=== PATIENT | female | born 1950 | race Caucasian/White ===

== ENCOUNTER 2023-08-25 19:02 | Inpatient (IN) ==
--- NOTE | 2023-08-25 21:11 | DR.GENAD ---
HPI Time Seen Time Seen by Provider: 08/25/23 21:10 PCP Primary Care Physician: Dr. Garcia Complaint/Symptoms Chief Complaint Doctors Comments: Patient states that she was diagnosed with Pneumonia LLL on 08/23/2023. Patient received Rocephin 1 gram IM and was given levaquin 750mg po. Patient returns to the ED today because she has generalized bodyaches and feels worse today. Patient is having chest pain and back pain from coughing.Patient denies: fever,n,v,headache,dizziness. Chief Complaint:: Patient diagnosed with pneumonia on 08/23/23 and was told to come back if worse. Patient states she is having intermittent pain in her back and chest from coughing. Self Treatment fo Chief Complaint: antibiotics, steriods, tylenol and ibuprofen COVID-19 Coronavirus risk:travel/contact w/high risk person: No Has patient experienced Coronavirus symptoms: Yes Coronavirus symptoms experienced: Fever, Coughing and Shortness of Breath Source History Provided: Patient Mode of Arrival Mode of Arrival: Ambulatory Timing Onset of Chief Complaint: 08/16/23 PMH PMH Past Medical History: Yes Past Medical History: Dyslipidemia and Hypertension Past Surgical History: Yes Surgical History: Hysterectomy Past Surgical History Comment: 2 foot, lumpectomy, partial nephrectomy Family History History of Family Medical Conditions: Yes Family Medical History: Diabetes Mellitus, Cancer and Hypertension Social History Alcohol Use: None Do you use any recreational Drugs:: No Lives With: Spouse Lives Where: Home Travel Risk Coronavirus risk:travel/contact w/high risk person: No Has patient experienced Coronavirus symptoms: Yes Coronavirus symptoms experienced: Fever, Coughing and Shortness of Breath Infectious screening In the last 2 months have you had wt loss of >10#?: NO Have you had fever, night sweats or hemotysis?: No Have you traveled outside the country in the last 6 months?: No Isolation: Standard ROS Review of Systems Constitutional: No Symptoms Reported Eyes: No Symptoms Reported ENTM: No Symptoms Reported Respiratoy: Dry Cough Cardiovascular: Chest Pain (pleuritic chest pain) Gastrointestinal/Abdominal: No Symptoms Reported Genitourinary: No Symptoms Reported Neurological: No Symptoms Reported Musculoskeletal: Back Pain (When patient coughs) Integumentary: No Symptoms Reported Hematologic/Lymphatic: No Symptoms Reported Endocrine: No Symptoms Reported Psychiatric: No Symptoms Reported All Other Systems: Reviewed and Negative PE Vital Signs Vitals: Vital Signs Temperature 98.4 F Temperature 98.8 F Temperature 99.5 F Temperature 99.6 F Pulse Rate [Radial] 99 Pulse Rate 109 Pulse Rate 124 Pulse Rate 112 Respiratory Rate 20 Respiratory Rate 18 Respiratory Rate 19 Respiratory Rate 19 Blood Pressure [Left Arm] 144/82 Blood Pressure 136/83 Blood Pressure 164/103 Blood Pressure 136/86 O2 Sat by Pulse Oximetry 98 O2 Sat by Pulse Oximetry 94 O2 Sat by Pulse Oximetry 95 O2 Sat by Pulse Oximetry 96 General Limitations: No Limitations General Appearance: Alert and In No Apparent Distress Head Head Exam: Normal Inspection Eyes Eye exam: Normal Appearance ENT ENT Exam: Normal Exam External Ear Exam: Normal External Inspection TM/Canal Exam: Bilateral: Normal Nose Exam: Normal Nose Exam Mouth Exam: Normal Inspection Throat Exam: Normal Inspection Neck Neck Exam: Normal Inspection Chest Chest Inspection: Normal Inspection Respiratory Respiratory Exam: Normal Lung Sounds Bilat Respiratory Exam: Bilateral: Clear to Auscultation Cardiovascular Cardiovascular Exam: Regular Rate and Normal Rhythm Abdominal Exam Abdominal Exam: Normal Inspection, Normal Bowel Sounds and Soft Extremities Extremities Exam: Normal Inspection Back Back Exam: Normal Inspection Neurologic Neurological Exam: Alert and Oriented X3 Psychiatric Psychiatric Exam: Normal Affect and Normal Mood Skin Skin Exam: Warm, Dry, Intact and Normal Color MDM Differential Diagnosis Differential Diagnosis: Electrolyte Disorder, Pneumonia,Failure of Outpatient therapy COURSE Treatment Treatment: Patient's ABG revealed a P02 59. Discussed Patient with Dr Heller and he accepted patient to his service for further evaluation.Patient received Rocephin 1 g iv and azithromycin 500mg iv in the ED. ROR Labs Reviewed Laboratory Results Reviewed?: Yes 08/25/23 21:25 08/25/23 21:25 Laboratory: WBC 10.1 X10^3/uL (3.6-10.0) H 08/25/23 21:25 RBC 4.23 X10^6/uL (3.5-5.4) 08/25/23 21:25 Hgb 12.1 g/dL (12.0-16.0) 08/25/23 21:25 Hct 36.5 % (36.0-47.0) 08/25/23 21:25 MCV 86.2 fL (80.0-100.0) 08/25/23 21:25 MCH 28.7 pg (27.0-34.0) 08/25/23 21:25 MCHC 33.3 g/dL (33.0-35.0) 08/25/23 21: RDW 14.1 % (11.6-16.5) 08/25/23: Plt Count 279 X10^3/uL (150.0-450.0) 08/25/23 21: MPV 8.1 fL (7.4-11.0) 08/25/23 21: Neut % (Auto) 76.6 % (42.0-75.0) H 08/25/23 21: Lymph % (Auto) 13.1 % (21.0-51.0) L 08/25/23: [place] % (Auto) 8.0 % (0.0-13.0) 08/25/23: Eos % (Auto) 1.5 % (0.9-2.9) 08/25/23: Baso % (Auto) 0.8 % (0.2-1.0) 08/25/23: Neut # (Auto) 7.7 x10^3/uL (2.2-4.8) H 08/25/23 21: Lymph # (Auto) 1.3 X10^3/uL (1.3-2.9) 08/25/23 21: [place] # (Auto) 0.8 x10^3/uL (0.3-0.8) 08/25/23 21: Eos # (Auto) 0.2 x10^3/uL (0.0-0.2) 08/25/23: Baso # (Auto) 0.1 X10^3/uL (0.0-0.1) 08/25/23 21: Absolute Nucleated RBC 0.0 /100WBC 08/25/23: Sample Site Rr 08/25/23 22: ABG pH 7.510 (7.35-7.45) H 08/25/23 22: ABG pCO2 36.0 mmHg (35.0-45.0) 08/25/23 22: ABG pO2 59.0 mmHg (80.0-100.0) L 08/25/23 22: ABG HCO3 28.7 mmol/L (22-26) H 08/25/23 22:22 ABG O2 Saturation 93.0 % (90-100) 08/25/23 22:22 ABG Base Excess 5.5 mmol/L (-2.0-2.0) H 08/25/23 22:22 Christo Test Pos 08/25/23 22:22 A-a Gradient 46.0 mmHg 08/25/23 22:22 FiO2 21.0 08/25/23 22:22 Blood Gas Comments Kemi well ae 08/25/23 22:22 Sodium 137 mmol/L (136-145) 08/25/23 21:25 Corrected Sodium TNP 08/25/23 21:25 Potassium 4.3 mmol/L (3.5-5.1) 08/25/23 21: Chloride 100 mmol/L (98-107) 08/25/23 21:25 Carbon Dioxide 28.9 mmol/L (21-32) 08/25/23 21: BUN 22 mg/dL (7-18) H 08/25/23 21:25 Creatinine 1.21 mg/dL (0.55-1.02) H 08/25/23 21:25 Est GFR (MDRD) Af Amer 56 (>60) L 08/25/23 21:25 Est GFR (MDRD) Non-Af 46 (>60) L 08/25/23 21:25 Glucose 98 mg/dL (65-99) 08/25/23 21: Calcium 8.7 mg/dL (8.5-10.1) 08/25/23 21:25 Corrected Calcium TNP 08/25/23 21:25 Total Bilirubin 0.40 mg/dL (0.2-1.0) 08/25/23 21:25 AST 14 Units/L (15-37) L 08/25/23 21:25 ALT 24 Units/L (12-78) 08/25/23 21:25 Alkaline Phosphatase 90 Units/L (46-116) 08/25/23 21:25 Total Protein 7.1 g/dL (6.4-8.2) 08/25/23 21:25 Albumin 3.4 g/dL (3.4-5.0) 08/25/23 21:25 Globulin 3.7 g/dL (2.5-4.5) 08/25/23 21:25 Albumin/Globulin Ratio 0.9 Ratio (1.1-2.1) L 08/25/23 21:25 Opioid Opioid Risk Tool Age (Rudy box if 16-45): No History of Preadolescent Sexual Abuse: No Total: 0 Total Score Risk Category: Low Risk Copyright: [facility] predicting aberrant behaviors Discharge Plan Diagnosis Discharge Problem: Pneumonia Discharge Plan Patient Disposition: 09 ADMITTED INPATIENT Condition: Stable Prescriptions: No Action meloxicam 15 mg tablet 15 mg PO QDAY losartan-hydrochlorothiazide 50-12.5 mg tablet 1 tab PO QDAY sertraline 50 mg tablet 50 mg PO BID rosuvastatin 10 mg tablet 10 mg PO QPM promethazine-DM 6.25-15 mg/5 mL syrup 5 ml PO Q6H PRN azithromycin 250 mg tablet 250 mg PO DAILY dexamethasone 4 mg tablet 4 mg PO QDAY albuterol sulfate 90 mcg/actuation HFA aerosol inhaler 1 puff INHALATION Q4H PRN levofloxacin 750 mg tablet 750 mg PO Q24H 10 Days Qty: 10 0RF Health Concerns: Post Hospitalization: new medications and changes needed to prevent readmission or further decline. Pt educated and given instructions on all concerns. Plan of Treatment: Continue with present treatment and follow up plan. Pt is to keep follow up appointment as instructed and take medications as ordered. Orders to Discharge Patient Discharge Orders: Transfer (Routine); Ordered 08/26/23 Ordered By: Angela Arshad Follow ups/Referrals Follow ups/Referrals: Blaine Garcia [Primary Care Provider] - 3 days Instructions Stand Alone Forms: Post Hospital Follow Up Care
[2023-08-25 21:44] LABS: BASOPHILS # (AUTO) 0.1 X10^3/uL (0.0-0.1); BASOPHILS % (AUTO) 0.8 % (0.2-1.0); EOSINOPHILS # (AUTO) 0.2 x10^3/uL (0.0-0.2); EOSINOPHILS % (AUTO) 1.5 % (0.9-2.9); HEMATOCRIT 36.5 % (36.0-47.0); HEMOGLOBIN 12.1 g/dL (12.0-16.0); LYMPHOCYTES # (AUTO) 1.3 X10^3/uL (1.3-2.9); LYMPHOCYTES % (AUTO) 13.1 % (21.0-51.0); MEAN CORPUSCULAR HEMOGLOBIN 28.7 pg (27.0-34.0); MEAN CORPUSCULAR HGB CONC 33.3 g/dL (33.0-35.0); MEAN CORPUSCULAR VOLUME 86.2 fL (80.0-100.0); MEAN PLATELET VOLUME 8.1 fL (7.4-11.0); MONOCYTES # (AUTO) 0.8 x10^3/uL (0.3-0.8); NEUTROPHILS # (AUTO) 7.7 x10^3/uL (2.2-4.8); NEUTROPHILS % (AUTO) 76.6 % (42.0-75.0); PLATELET COUNT 279 X10^3/uL (150.0-450.0); RED BLOOD COUNT 4.23 X10^6/uL (3.5-5.4); RED CELL DISTRIBUTION WIDTH 14.1 % (11.6-16.5); WHITE BLOOD COUNT 10.1 X10^3/uL (3.6-10.0)
[2023-08-25 21:53] LABS: ALANINE AMINOTRANSFERASE 24 Units/L (12-78); ALBUMIN 3.4 g/dL (3.4-5.0); ALKALINE PHOSPHATASE 90 Units/L (46-116); ASPARTATE AMINO TRANSFERASE 14 Units/L (15-37); BLOOD UREA NITROGEN 22 mg/dL (7-18); CALCIUM 8.7 mg/dL (8.5-10.1); CARBON DIOXIDE 28.9 mmol/L (21-32); CHLORIDE 100 mmol/L (98-107); CREATININE 1.21 mg/dL (0.55-1.02); GLUCOSE 98 mg/dL (65-99); POTASSIUM 4.3 mmol/L (3.5-5.1); SODIUM 137 mmol/L (136-145); TOTAL PROTEIN 7.1 g/dL (6.4-8.2); eGFR NON BLACK RACES 46 (>60)
[2023-08-25 22:27] LABS: ABG ALLEN TEST POS; ABG BASE EXCESS 5.5 mmol/L (-2.0-2.0); ABG HCO3 28.7 mmol/L (22-26)
[2023-08-25] MEDS ORDERED: ROCEPHIN VIAL 2 GRAMS 2 G in NS 100 ML IV 100 ML IV SCH (23:39)
[2023-08-25] MEDS ORDERED: NS 100 ML IV 100 ML ONE (23:47)
[2023-08-25] MEDS ORDERED: ROCEPHIN VIAL 1 GRAM ONE (23:47)
[2023-08-26] MEDS ORDERED: VENTOLIN or PROAIR HFA IN PRN (01:17)
[2023-08-26 02:00] VITALS: BMI 24.0
[2023-08-26] MEDS: ZOFRAN INJ 4 MG VIAL IVP PRN (03:58)
[2023-08-26 04:49] LABS: BASOPHILS % (AUTO) 0.5 % (0.2-1.0); EOSINOPHILS # (AUTO) 0.1 x10^3/uL (0.0-0.2); EOSINOPHILS % (AUTO) 1.6 % (0.9-2.9); HEMATOCRIT 33.3 % (36.0-47.0); HEMOGLOBIN 11.5 g/dL (12.0-16.0); LYMPHOCYTES # (AUTO) 1.2 X10^3/uL (1.3-2.9); LYMPHOCYTES % (AUTO) 12.5 % (21.0-51.0); MEAN CORPUSCULAR HEMOGLOBIN 30.7 pg (27.0-34.0); MEAN CORPUSCULAR HGB CONC 34.5 g/dL (33.0-35.0); MEAN CORPUSCULAR VOLUME 89.1 fL (80.0-100.0); MEAN PLATELET VOLUME 8.6 fL (7.4-11.0); MONOCYTES # (AUTO) 0.8 x10^3/uL (0.3-0.8); NEUTROPHILS # (AUTO) 7.2 x10^3/uL (2.2-4.8); NEUTROPHILS % (AUTO) 76.4 % (42.0-75.0); PLATELET COUNT 285 X10^3/uL (150.0-450.0); RED BLOOD COUNT 3.73 X10^6/uL (3.5-5.4); RED CELL DISTRIBUTION WIDTH 14.1 % (11.6-16.5); WHITE BLOOD COUNT 9.5 X10^3/uL (3.6-10.0)
[2023-08-26 05:04] LABS: ALANINE AMINOTRANSFERASE 22 Units/L (12-78); ALKALINE PHOSPHATASE 78 Units/L (46-116); ASPARTATE AMINO TRANSFERASE 14 Units/L (15-37); BLOOD UREA NITROGEN 24 mg/dL (7-18); CALCIUM 8.5 mg/dL (8.5-10.1); CARBON DIOXIDE 26.7 mmol/L (21-32); CHLORIDE 102 mmol/L (98-107); COR CA(FOR HYPOALB) 9.3 mg/dL (8.5-10.1); CREATININE 1.15 mg/dL (0.55-1.02); GLUCOSE 107 mg/dL (65-99); POTASSIUM 4.1 mmol/L (3.5-5.1); SODIUM 138 mmol/L (136-145); TOTAL PROTEIN 6.6 g/dL (6.4-8.2); eGFR NON BLACK RACES 49 (>60)
--- NOTE | 2023-08-26 08:55 | DR.H&P ---
H&P History & Physical for Day of: H&P Date: 08/26/23 Chief Complaint Chief Complaint: Left lower lobe pneumonia Allergies Allergies Allergy/AdvReac Type Severity Reaction Status Date / Time No Known Drug Allergies Allergy Verified 08/25/23 20:13 History of Present Illness History of Present Illness: This is a pleasant 73-year-old white female who was diagnosed with left lower lobe pneumonia on 08/23/2023. She was treated with p.o. Levaquin as outpatient but has not gotten any better. She is having a lot of shortness of breath and coughing at this time. She reports that she is having a lot of pain in her back and chest from the coughing. This morning she tells me that she is having black tarry stool since last night. She does have a history of taking ibuprofen and has been on antibiotics and steroids recently as well. She has some mild epigastric pain she reports. I told her to not eat anything and we will start her on IV Protonix and consult Dr. Gautam for EGD later today. Meantime we will continue her on IV Levaquin for her pneumonia. Past Medical History Past Medical History: Dyslipidemia and Hypertension Past Surgical History Surgical History: Hysterectomy and Mastectomy Family History Family Medical History: Diabetes Mellitus, Cancer and Hypertension Social History Does any household member use tobacco: No Alcohol Use: None Drug Use: None Medications Home Medications: Home Medications Medication Instructions Recorded Confirmed Type losartan 50 mg-hydrochlorothiazide 1 tab PO QDAY 08/23/23 08/26/23 History 12.5 mg tablet meloxicam 15 mg tablet 15 mg PO QDAY 08/23/23 08/26/23 History rosuvastatin 10 mg tablet 10 mg PO QPM 08/23/23 08/26/23 History sertraline 50 mg tablet 50 mg PO BID 08/23/23 08/26/23 History Labs 08/26/23 04:03 08/26/23 04:03 Labs: Laboratory WBC 9.5 X10^3/uL (3.6-10.0) 08/26/23 04:03 RBC 3.73 X10^6/uL (3.5-5.4) 08/26/23 04:03 Hgb 11.5 g/dL (12.0-16.0) L 08/26/23 04:03 Hct 33.3 % (36.0-47.0) L 08/26/23 04:03 MCV 89.1 fL (80.0-100.0) 08/26/23 04:03 MCH 30.7 pg (27.0-34.0) 08/26/23 04:03 MCHC 34.5 g/dL (33.0-35.0) 08/26/23 04:03 RDW 14.1 % (11.6-16.5) 08/26/23 04:03 Plt Count 285 X10^3/uL (150.0-450.0) 08/26/23 04:03 MPV 8.6 fL (7.4-11.0) 08/26/23 04:03 Neut % (Auto) 76.4 % (42.0-75.0) H 08/26/23 04:03 Lymph % (Auto) 12.5 % (21.0-51.0) L 08/26/23 04:03 [place] % (Auto) 9.0 % (0.0-13.0) 08/26/23 04:03 Eos % (Auto) 1.6 % (0.9-2.9) 08/26/23 04:03 Baso % (Auto) 0.5 % (0.2-1.0) 08/26/23 04:03 Neut # (Auto) 7.2 x10^3/uL (2.2-4.8) H 08/26/23 04:03 Lymph # (Auto) 1.2 X10^3/uL (1.3-2.9) L 08/26/23 04:03 [place] # (Auto) 0.8 x10^3/uL (0.3-0.8) 08/26/23 04:03 Eos # (Auto) 0.1 x10^3/uL (0.0-0.2) 08/26/23 04:03 Baso # (Auto) 0.0 X10^3/uL (0.0-0.1) 08/26/23 04:03 Absolute Nucleated RBC 0.6 /100WBC 08/26/23 04:03 Sample Site Rr 08/25/23 22:22 ABG pH 7.510 (7.35-7.45) H 08/25/23 22:22 ABG pCO2 36.0 mmHg (35.0-45.0) 08/25/23 22:22 ABG pO2 59.0 mmHg (80.0-100.0) L 08/25/23 22:22 ABG HCO3 28.7 mmol/L (22-26) H 08/25/23 22:22 ABG O2 Saturation 93.0 % (90-100) 08/25/23 22:22 ABG Base Excess 5.5 mmol/L (-2.0-2.0) H 08/25/23 22:22 Christo Test Pos 08/25/23 22:22 A-a Gradient 46.0 mmHg 08/25/23 22:22 FiO2 21.0 08/25/23 22:22 Blood Gas Comments Kemi well ae 08/25/23 22:22 Sodium 138 mmol/L (136-145) 08/26/23 04:03 Corrected Sodium TNP 08/26/23 04:03 Potassium 4.1 mmol/L (3.5-5.1) 08/26/23 04:03 Chloride 102 mmol/L (98-107) 08/26/23 04:03 Carbon Dioxide 26.7 mmol/L (21-32) 08/26/23 04:03 BUN 24 mg/dL (7-18) H 08/26/23 04:03 Creatinine 1.15 mg/dL (0.55-1.02) H 08/26/23 04:03 Est GFR (MDRD) Af Amer 60 (>60) 08/26/23 04:03 Est GFR (MDRD) Non-Af 49 (>60) L 08/26/23 04:03 Glucose 107 mg/dL (65-99) H 08/26/23 04:03 Calcium 8.5 mg/dL (8.5-10.1) 08/26/23 04:03 Corrected Calcium 9.3 mg/dL (8.5-10.1) 08/26/23 04:03 Total Bilirubin 0.30 mg/dL (0.2-1.0) 08/26/23 04:03 AST 14 Units/L (15-37) L 08/26/23 04:03 ALT 22 Units/L (12-78) 08/26/23 04:03 Alkaline Phosphatase 78 Units/L (46-116) 08/26/23 04:03 Total Protein 6.6 g/dL (6.4-8.2) 08/26/23 04:03 Albumin 3.0 g/dL (3.4-5.0) L 08/26/23 04:03 Globulin 3.6 g/dL (2.5-4.5) 08/26/23 04:03 Albumin/Globulin Ratio 0.8 Ratio (1.1-2.1) L 08/26/23 04:03 Review of Systems Constitutional: No Symptoms Reported Eyes: No Symptoms Reported ENT: No Symptoms Reported Respiratory: Cough, Pleuritic Pain and Sputum Cardiovascular: No Symptoms Reported Gastrointestinal: Diarrhea and Melena Musculoskeletal: No Symptoms Reported Skin: No Symptoms Reported Neurological: No Symptoms Reported Physical Exam Vital Signs: Vital Signs Temperature 99.7 F Pulse Rate [Radial] 105 Pulse Rate 98 Respiratory Rate 20 Blood Pressure [Left Arm] 138/86 O2 Sat by Pulse Oximetry 95 O2 Sat by Pulse Oximetry 98 Oriented: Normal, Time, Person and Place Eyes: Normal Ear: Normal Nose: Normal Throat: Normal Respiratory: LLL Rhonchi Cardiovascular: Normal Auscultation: Bowel Sounds: Normal Palpation: Normal Tenderness: Epigastric Skin: Normal Musculoskeletal: Normal Psychiatric: Normal Mood Description: Calm Affect: Normal Speech Pattern: Clear and Appropriate Assessment/Plan (1) Pneumonia: Status: Acute Plan: Follow-up sputum culture. Continue IV Levaquin, jet nebs and repeat chest x-ray this morning. (2) Melena: Status: Acute Plan: Start Protonix 40 mg IV twice daily and consult general surgery, Dr. Gautam for EGD. Will make the patient n.p.o. this morning. Review H&P Reviewed: Yes Patient was examined?: Yes
[2023-08-26] MEDS: HYZAAR 50/12.5 MG PO SCH (09:00)
[2023-08-26] MEDS: MOBIC TAB 15 MG PO SCH ×2 (09:08→11:17)
[2023-08-26] MEDS: DECADRON TAB PO SCH ×2 (09:08→11:17)
[2023-08-26] MEDS: NS 1,000 ML IV 1,000 ML IV SCH ×3 (09:09→20:39)
[2023-08-26] MEDS: PROTONIX INJ 40 MG VIAL IVP SCH ×2 (09:09→22:00)
[2023-08-26] MEDS: ZOLOFT PO SCH ×3 (09:09→20:21)
[2023-08-26] MEDS ORDERED: NS 1,000 ML IV 1,000 ML ONE (09:20)
[2023-08-26] MEDS ORDERED: DIPRIVAN VIAL 20 ML ONE (09:35)
[2023-08-26] MEDS: PROVENTIL NEB TX 0.083% 2.5MG/ 3ML NEB SCH ×4 (10:07→21:05)
[2023-08-26] MEDS: CARAFATE PO SCH ×3 (11:50→20:37)
[2023-08-26] MEDS: CRESTOR TAB 10 MG PO SCH (20:21)
[2023-08-27] MEDS: ROCEPHIN VIAL 2 GRAMS 2 G in NS 100 ML IV 100 ML IV SCH (02:00)
[2023-08-27] MEDS: NS 1,000 ML IV 1,000 ML IV SCH ×4 (04:30→17:07)
[2023-08-27 05:21] LABS: ALANINE AMINOTRANSFERASE 15 Units/L (12-78); ALBUMIN 2.8 g/dL (3.4-5.0); ALKALINE PHOSPHATASE 68 Units/L (46-116); ASPARTATE AMINO TRANSFERASE 12 Units/L (15-37); BLOOD UREA NITROGEN 20 mg/dL (7-18); CALCIUM 8.1 mg/dL (8.5-10.1); CARBON DIOXIDE 24.1 mmol/L (21-32); CHLORIDE 105 mmol/L (98-107); COR CA(FOR HYPOALB) 9.1 mg/dL (8.5-10.1); COR NA(FOR HYPERGLY) 138 mmol/L (136-145); CREATININE 1.07 mg/dL (0.55-1.02); GLUCOSE 119 mg/dL (65-99); MAGNESIUM 2.1 mg/dL (2.0-2.9); POTASSIUM 3.7 mmol/L (3.5-5.1); SODIUM 138 mmol/L (136-145); TOTAL PROTEIN 5.8 g/dL (6.4-8.2); eGFR NON BLACK RACES 54 (>60)
[2023-08-27] MEDS: CARAFATE PO SCH ×4 (05:29→20:36)
[2023-08-27 05:37] LABS: BASOPHILS % (AUTO) 0.3 % (0.2-1.0); EOSINOPHILS # (AUTO) 0.1 x10^3/uL (0.0-0.2); EOSINOPHILS % (AUTO) 0.8 % (0.9-2.9); HEMOGLOBIN 9.2 g/dL (12.0-16.0); LYMPHOCYTES # (AUTO) 1.4 X10^3/uL (1.3-2.9); LYMPHOCYTES % (AUTO) 17.3 % (21.0-51.0); MEAN CORPUSCULAR HEMOGLOBIN 30.6 pg (27.0-34.0); MEAN CORPUSCULAR HGB CONC 34.1 g/dL (33.0-35.0); MEAN CORPUSCULAR VOLUME 89.8 fL (80.0-100.0); MEAN PLATELET VOLUME 8.7 fL (7.4-11.0); MONOCYTES # (AUTO) 0.7 x10^3/uL (0.3-0.8); MONOCYTES % (AUTO) 9.1 % (0.0-13.0); NEUTROPHILS # (AUTO) 5.7 x10^3/uL (2.2-4.8); NEUTROPHILS % (AUTO) 72.5 % (42.0-75.0); PLATELET COUNT 225 X10^3/uL (150.0-450.0); RED BLOOD COUNT 3.01 X10^6/uL (3.5-5.4); RED CELL DISTRIBUTION WIDTH 14.9 % (11.6-16.5); WHITE BLOOD COUNT 7.9 X10^3/uL (3.6-10.0)
[2023-08-27] MEDS ORDERED: CONSULT PHARMACY - POTASSIUM & MAGNESIUM XX SCH ×2 (06:00→21:00)
--- NOTE | 2023-08-27 08:30 | RAD ---
EXAM:CHEST, 1 VIEWHISTORY:PNEUMONIA;COMPARISON: 023FINDINGS:The lungs are clear. No pneumothorax or effusion.Heart size is normal. The aorta is tortuous; this can be seen with atherosclerosis, hypertension, and aging.The bones are unremarkable.IMPRESSION:1. No significant abnormalityTHIS IS AN ELECTRONICALLY VERIFIED FINAL [id number]/27/2023 8:17 AM - Electronically signed by Atilio Marie MD
--- NOTE | 2023-08-27 08:30 | RAD ---
EXAM:CHEST, PA/LAT ADULTHISTORY:PNEUMONIA;COMPARISON:2022FINDINGS:The lungs are clear. No pneumothorax or effusion.Cardiomegaly is present. The aorta is tortuous; this can be seen with atherosclerosis, hypertension, and aging.Degenerative changes are present in the spine.IMPRESSION:1. CardiomegalyTHIS IS AN ELECTRONICALLY VERIFIED FINAL [id number]/27/2023 8:23 AM - Electronically signed by Atilio Marie MD
[2023-08-27] MEDS ORDERED: K-DUR TAB 20 MEQ PO SCH (09:00)
[2023-08-27] MEDS: PROVENTIL NEB TX 0.083% 2.5MG/ 3ML NEB SCH ×4 (09:09→20:48)
[2023-08-27] MEDS: PROTONIX INJ 40 MG VIAL IVP SCH ×2 (09:12→20:35)
[2023-08-27] MEDS: DECADRON TAB PO SCH (09:12)
[2023-08-27] MEDS: HYZAAR 50/12.5 MG PO SCH (09:13)
[2023-08-27] MEDS: ZOLOFT PO SCH ×2 (09:13→20:36)
[2023-08-27] MEDS: ZITHROMAX INJ 500 MG VIAL 500 MG in NS 250 ML IV 250 ML IV SCH ×2 (09:21→22:50)
[2023-08-27] MEDS: AFRIN NASAL SPRAY ENOSTRIL SCH ×2 (09:24→20:36)
[2023-08-27] MEDS ORDERED: PULMICORT NEB TX 0.5 MG NEB ONE (19:36)
[2023-08-27] MEDS: CRESTOR TAB 10 MG PO SCH (20:36)
--- NOTE | 2023-08-27 22:04 | PCM.PROG ---
Progress Note Progress Note for Day of Date of Exam: 08/27/23 Subjective Subjective: The patient is feeling somewhat better today. She is still having some productive coughing and chest congestion. Her chest x-ray this morning shows that her pneumonia has cleared. EGD yesterday showed that she had ulcers in the stomach; however, they were not bleeding at the time. Will continue her on IV Protonix and IV antibiotics. Hopefully we can possibly get her discharged home tomorrow morning. Past Medical Family Social History Allergies: Allergies No Known Drug Allergies Allergy (Verified 08/25/23 20:13) Review of Systems ROS: No change since H&P Vital Signs and I&O's Vital Signs: Vital Signs Temperature 98.5 F Temperature 98.7 F Pulse Rate [Radial] 95 Pulse Rate [Radial] 100 Pulse Rate 96 Respiratory Rate 20 Respiratory Rate 18 Blood Pressure [Right Arm] 147/76 Blood Pressure [Right Arm] 132/59 O2 Sat by Pulse Oximetry 99 O2 Sat by Pulse Oximetry 95 O2 Sat by Pulse Oximetry 98 Intake and Output: Intake & Output 08/25/23 08/26/23 08/27/23 08/28/23 11:59 11:59 11:59 11:59 Intake Total 200 / 200 3495 / 3495 2113 Balance 200 / 200 3495 / 3495 2113 Physical Exam Oriented: Normal, Time, Person and Place Eyes: Normal Ear: Normal Nose: Normal Throat: Normal Respiratory: Diminished Cardiovascular: Normal Auscultation: Bowel Sounds: Normal Tenderness: Epigastric Skin: Normal Musculoskeletal: Normal Psychiatric: Normal Mood Description: Calm Affect: Normal Speech Pattern: Clear and Appropriate Laboratory and Diagnostics 08/27/23 04:35 08/27/23 04:35 Labs: 08/25/23 23:43 Blood Blood Culture - Preliminary 08/25/23 23:39 Blood Blood Culture - Preliminary Laboratory WBC 7.9 X10^3/uL (3.6-10.0) 08/27/23 04:35 RBC 3.01 X10^6/uL (3.5-5.4) L 08/27/23 04:35 Hgb 9.2 g/dL (12.0-16.0) L D 08/27/23 04:35 Hct 27.0 % (36.0-47.0) L 08/27/23 04:35 MCV 89.8 fL (80.0-100.0) 08/27/23 04:35 MCH 30.6 pg (27.0-34.0) 08/27/23 04:35 MCHC 34.1 g/dL (33.0-35.0) 08/27/23 04:35 RDW 14.9 % (11.6-16.5) 08/27/23 04:35 Plt Count 225 X10^3/uL (150.0-450.0) 08/27/23 04:35 MPV 8.7 fL (7.4-11.0) 08/27/23 04:35 Neut % (Auto) 72.5 % (42.0-75.0) 08/27/23 04:35 Lymph % (Auto) 17.3 % (21.0-51.0) L 08/27/23 04:35 [place] % (Auto) 9.1 % (0.0-13.0) 08/27/23 04:35 Eos % (Auto) 0.8 % (0.9-2.9) L 08/27/23 04:35 Baso % (Auto) 0.3 % (0.2-1.0) 08/27/23 04:35 Neut # (Auto) 5.7 x10^3/uL (2.2-4.8) H 08/27/23 04:35 Lymph # (Auto) 1.4 X10^3/uL (1.3-2.9) 08/27/23 04:35 [place] # (Auto) 0.7 x10^3/uL (0.3-0.8) 08/27/23 04:35 Eos # (Auto) 0.1 x10^3/uL (0.0-0.2) 08/27/23 04:35 Baso # (Auto) 0.0 X10^3/uL (0.0-0.1) 08/27/23 04:35 Absolute Nucleated RBC 0.2 /100WBC 08/27/23 04:35 Sample Site Rr 08/25/23 22:22 ABG pH 7.510 (7.35-7.45) H 08/25/23 22:22 ABG pCO2 36.0 mmHg (35.0-45.0) 08/25/23 22:22 ABG pO2 59.0 mmHg (80.0-100.0) L 08/25/23 22:22 ABG HCO3 28.7 mmol/L (22-26) H 08/25/23 22:22 ABG O2 Saturation 93.0 % (90-100) 08/25/23 22:22 ABG Base Excess 5.5 mmol/L (-2.0-2.0) H 08/25/23 22:22 Christo Test Pos 08/25/23 22:22 A-a Gradient 46.0 mmHg 08/25/23 22:22 FiO2 21.0 08/25/23 22:22 Blood Gas Comments Kemi well ae 08/25/23 22:22 Sodium 138 mmol/L (136-145) 08/27/23 04:35 Corrected Sodium 138 mmol/L (136-145) 08/27/23 04:35 Potassium 3.7 mmol/L (3.5-5.1) 08/27/23 04:35 Chloride 105 mmol/L (98-107) 08/27/23 04:35 Carbon Dioxide 24.1 mmol/L (21-32) 08/27/23 04:35 BUN 20 mg/dL (7-18) H 08/27/23 04:35 Creatinine 1.07 mg/dL (0.55-1.02) H 08/27/23 04:35 Est GFR (MDRD) Af Amer > 60 (>60) 08/27/23 04:35 Est GFR (MDRD) Non-Af 54 (>60) L 08/27/23 04:35 Glucose 119 mg/dL (65-99) H 08/27/23 04:35 Calcium 8.1 mg/dL (8.5-10.1) L 08/27/23 04:35 Corrected Calcium 9.1 mg/dL (8.5-10.1) 08/27/23 04:35 Magnesium 2.1 mg/dL (2.0-2.9) 08/27/23 04:35 Total Bilirubin 0.30 mg/dL (0.2-1.0) 08/27/23 04:35 AST 12 Units/L (15-37) L 08/27/23 04:35 ALT 15 Units/L (12-78) 08/27/23 04:35 Alkaline Phosphatase 68 Units/L (46-116) 08/27/23 04:35 Total Protein 5.8 g/dL (6.4-8.2) L 08/27/23 04:35 Albumin 2.8 g/dL (3.4-5.0) L 08/27/23 04:35 Globulin 3.0 g/dL (2.5-4.5) 08/27/23 04:35 Albumin/Globulin Ratio 0.9 Ratio (1.1-2.1) L 08/27/23 04:35 Stl Occult Blood (IFOB) Positive (NEGATIVE) A 08/26/23 11:00 SARS-CoV-2 (PCR) Negative (NEGATIVE) 08/26/23 09:10 Influenza Type A (PCR) Negative (NEGATIVE) 08/26/23 09:10 Influenza Type B (PCR) Negative (NEGATIVE) 08/26/23 09:10 RSV (PCR) Negative (NEGATIVE) 08/26/23 09:10 Resp Viral Panel (PCR) See scanned report 08/26/23 01:41 Plan (1) Pneumonia: Status: Acute Plan: Follow-up sputum culture. Continue IV Levaquin, jet nebs and repeat chest x-ray this morning. (2) Melena: Status: Acute Plan: Start Protonix 40 mg IV twice daily and consult general surgery, Dr. Gautam for EGD. Will make the patient n.p.o. this morning.
[2023-08-28] MEDS: NS 1,000 ML IV 1,000 ML IV SCH ×5 (01:27→20:16)
[2023-08-28] MEDS: ROCEPHIN VIAL 2 GRAMS 2 G in NS 100 ML IV 100 ML IV SCH (01:33)
[2023-08-28] MEDS: ZOFRAN INJ 4 MG VIAL IVP PRN (01:34)
[2023-08-28] MEDS: CARAFATE PO SCH ×4 (06:04→20:15)
[2023-08-28 06:42] LABS: BASOPHILS % (AUTO) 0.3 % (0.2-1.0); EOSINOPHILS # (AUTO) 0.1 x10^3/uL (0.0-0.2); EOSINOPHILS % (AUTO) 0.6 % (0.9-2.9); HEMATOCRIT 20.8 % (36.0-47.0); LYMPHOCYTES % (AUTO) 24.7 % (21.0-51.0); MEAN CORPUSCULAR HEMOGLOBIN 31.5 pg (27.0-34.0); MEAN CORPUSCULAR VOLUME 92.7 fL (80.0-100.0); MEAN PLATELET VOLUME 8.7 fL (7.4-11.0); MONOCYTES # (AUTO) 0.7 x10^3/uL (0.3-0.8); NEUTROPHILS # (AUTO) 5.4 x10^3/uL (2.2-4.8); NEUTROPHILS % (AUTO) 66.4 % (42.0-75.0); PLATELET COUNT 205 X10^3/uL (150.0-450.0); RED BLOOD COUNT 2.24 X10^6/uL (3.5-5.4); RED CELL DISTRIBUTION WIDTH 14.7 % (11.6-16.5); WHITE BLOOD COUNT 8.2 X10^3/uL (3.6-10.0)
[2023-08-28 06:49] LABS: ALANINE AMINOTRANSFERASE 15 Units/L (12-78); ALBUMIN 2.5 g/dL (3.4-5.0); ALKALINE PHOSPHATASE 61 Units/L (46-116); ASPARTATE AMINO TRANSFERASE 11 Units/L (15-37); BLOOD UREA NITROGEN 32 mg/dL (7-18); CALCIUM 7.4 mg/dL (8.5-10.1); CARBON DIOXIDE 24.2 mmol/L (21-32); CHLORIDE 109 mmol/L (98-107); COR CA(FOR HYPOALB) 8.6 mg/dL (8.5-10.1); CREATININE 1.06 mg/dL (0.55-1.02); GLUCOSE 97 mg/dL (65-99); POTASSIUM 3.7 mmol/L (3.5-5.1); SODIUM 141 mmol/L (136-145); TOTAL PROTEIN 5.2 g/dL (6.4-8.2); eGFR NON BLACK RACES 54 (>60)
[2023-08-28] MEDS ORDERED: CONSULT PHARMACY - POTASSIUM & MAGNESIUM XX SCH (08:00)
[2023-08-28] MEDS ORDERED: K-DUR TAB 20 MEQ PO SCH (09:00)
[2023-08-28] MEDS: PROVENTIL NEB TX 0.083% 2.5MG/ 3ML NEB SCH ×4 (09:10→21:01)
[2023-08-28] MEDS: ZOLOFT PO SCH ×2 (09:12→20:15)
[2023-08-28] MEDS: DECADRON TAB PO SCH (09:12)
[2023-08-28] MEDS: HYZAAR 50/12.5 MG PO SCH (09:12)
[2023-08-28] MEDS: AFRIN NASAL SPRAY ENOSTRIL SCH ×2 (09:25→20:15)
[2023-08-28] MEDS: PROTONIX INJ 40 MG VIAL IVP SCH ×2 (09:53→20:15)
[2023-08-28] MEDS: CRESTOR TAB 10 MG PO SCH (20:15)
--- NOTE | 2023-08-28 22:27 | PCM.PROG ---
Progress Note Progress Note for Day of Date of Exam: 08/28/23 Subjective Subjective: The patient is feeling somewhat better today. She is still having melanotic stool. Her hemoglobin has dropped to 7.0 this morning. We will go ahead and transfuse 2 units packed red blood cells today. Her chest x-ray yesterday showed that her pneumonia has cleared at this time. She is having left coughing and feels better overall since admission. We will plan on possible discharge tomorrow if the patient's hemoglobin is stable and she is no longer having melanotic stool. We will continue her on IV Protonix 40 mg twice daily. We will also continue her on IV levofloxacin for her community-acquired pneumonia. The patient has not had a sputum culture so we are treating her pneumonia empirically. Past Medical Family Social History Allergies: Allergies No Known Drug Allergies Allergy (Verified 08/25/23 20:13) Review of Systems ROS: No change since H&P Vital Signs and I&O's Vital Signs: Vital Signs Temperature 98.6 F Temperature 98.3 F Pulse Rate [Radial] 96 Pulse Rate [Radial] 88 Pulse Rate 78 Respiratory Rate 18 Respiratory Rate 20 Blood Pressure [Right Arm] 136/79 Blood Pressure [Right Arm] 156/71 O2 Sat by Pulse Oximetry 97 O2 Sat by Pulse Oximetry 97 O2 Sat by Pulse Oximetry 98 Intake and Output: Intake & Output 08/26/23 08/27/23 08/28/23 08/29/23 11:59 11:59 11:59 11:59 Intake Total 200 / 200 3495 / 3495 4206 / 4206 2032 Balance 200 / 200 3495 / 3495 4206 / 4206 2032 Physical Exam Oriented: Normal, Time, Person and Place Eyes: Normal Ear: Normal Nose: Normal Throat: Normal Respiratory: Normal Cardiovascular: Normal Auscultation: Bowel Sounds: Normal Tenderness: Epigastric Skin: Normal Musculoskeletal: Normal Psychiatric: Normal Mood Description: Calm Affect: Normal Speech Pattern: Clear and Appropriate Laboratory and Diagnostics 08/28/23 05:17 08/28/23 05:17 Labs: 08/25/23 23:43 Blood Blood Culture - Preliminary 08/25/23 23:39 Blood Blood Culture - Preliminary Laboratory WBC 8.2 X10^3/uL (3.6-10.0) 08/28/23 05:17 RBC 2.24 X10^6/uL (3.5-5.4) L 08/28/23 05:17 Hgb 7.0 g/dL (12.0-16.0) L* D 08/28/23 05:17 Hct 20.8 % (36.0-47.0) L 08/28/23 05:17 MCV 92.7 fL (80.0-100.0) 08/28/23 05:17 MCH 31.5 pg (27.0-34.0) 08/28/23 05:17 MCHC 34.0 g/dL (33.0-35.0) 08/28/23 05:17 RDW 14.7 % (11.6-16.5) 08/28/23 05:17 Plt Count 205 X10^3/uL (150.0-450.0) 08/28/23 05:17 MPV 8.7 fL (7.4-11.0) 08/28/23 05:17 Neut % (Auto) 66.4 % (42.0-75.0) 08/28/23 05:17 Lymph % (Auto) 24.7 % (21.0-51.0) 08/28/23 05:17 [place] % (Auto) 8.0 % (0.0-13.0) 08/28/23 05:17 Eos % (Auto) 0.6 % (0.9-2.9) L 08/28/23 05:17 Baso % (Auto) 0.3 % (0.2-1.0) 08/28/23 05:17 Neut # (Auto) 5.4 x10^3/uL (2.2-4.8) H 08/28/23 05:17 Lymph # (Auto) 2.0 X10^3/uL (1.3-2.9) 08/28/23 05:17 [place] # (Auto) 0.7 x10^3/uL (0.3-0.8) 08/28/23 05:17 Eos # (Auto) 0.1 x10^3/uL (0.0-0.2) 08/28/23 05:17 Baso # (Auto) 0.0 X10^3/uL (0.0-0.1) 08/28/23 05:17 Absolute Nucleated RBC 0.0 /100WBC 08/28/23 05:17 Sample Site Rr 08/25/23 22:22 ABG pH 7.510 (7.35-7.45) H 08/25/23 22:22 ABG pCO2 36.0 mmHg (35.0-45.0) 08/25/23 22:22 ABG pO2 59.0 mmHg (80.0-100.0) L 08/25/23 22:22 ABG HCO3 28.7 mmol/L (22-26) H 08/25/23 22:22 ABG O2 Saturation 93.0 % (90-100) 08/25/23 22:22 ABG Base Excess 5.5 mmol/L (-2.0-2.0) H 08/25/23 22:22 Christo Test Pos 08/25/23 22:22 A-a Gradient 46.0 mmHg 08/25/23 22:22 FiO2 21.0 08/25/23 22:22 Blood Gas Comments Kemi well ae 08/25/23 22:22 Sodium 141 mmol/L (136-145) 08/28/23 05:17 Corrected Sodium TNP 08/28/23 05:17 Potassium 3.7 mmol/L (3.5-5.1) 08/28/23 05:17 Chloride 109 mmol/L (98-107) H 08/28/23 05:17 Carbon Dioxide 24.2 mmol/L (21-32) 08/28/23 05:17 BUN 32 mg/dL (7-18) H 08/28/23 05:17 Creatinine 1.06 mg/dL (0.55-1.02) H 08/28/23 05:17 Est GFR (MDRD) Af Amer > 60 (>60) 08/28/23 05:17 Est GFR (MDRD) Non-Af 54 (>60) L 08/28/23 05:17 Glucose 97 mg/dL (65-99) 08/28/23 05:17 Calcium 7.4 mg/dL (8.5-10.1) L 08/28/23 05:17 Corrected Calcium 8.6 mg/dL (8.5-10.1) 08/28/23 05:17 Magnesium 1.8 mg/dL (2.0-2.9) L 08/28/23 05:17 Total Bilirubin 0.20 mg/dL (0.2-1.0) 08/28/23 05:17 AST 11 Units/L (15-37) L 08/28/23 05:17 ALT 15 Units/L (12-78) 08/28/23 05:17 Alkaline Phosphatase 61 Units/L (46-116) 08/28/23 05:17 Total Protein 5.2 g/dL (6.4-8.2) L 08/28/23 05:17 Albumin 2.5 g/dL (3.4-5.0) L 08/28/23 05:17 Globulin 2.7 g/dL (2.5-4.5) 08/28/23 05:17 Albumin/Globulin Ratio 0.9 Ratio (1.1-2.1) L 08/28/23 05:17 Stl Occult Blood (IFOB) Positive (NEGATIVE) A 08/26/23 11:00 SARS-CoV-2 (PCR) Negative (NEGATIVE) 08/26/23 09:10 Influenza Type A (PCR) Negative (NEGATIVE) 08/26/23 09:10 Influenza Type B (PCR) Negative (NEGATIVE) 08/26/23 09:10 RSV (PCR) Negative (NEGATIVE) 08/26/23 09:10 Resp Viral Panel (PCR) See scanned report 08/26/23 01:41 Tissue Pathology See comment. 08/26/23 09:45 Blood Type O POSITIVE 08/28/23 08:08 Antibody Screen Positive 08/28/23 08:08 Crossmatch See Detail 08/28/23 08:08 Plan (1) Pneumonia: Status: Acute Qualifiers: Pneumonia type: due to unspecified organism Laterality: left Lung location: unspecified part of lung Qualified Code(s): J18.9 - Pneumonia, unspecified organism Plan: Follow-up sputum culture. Continue IV Levaquin, jet nebs and repeat chest x-ray this morning. (2) Melena: Status: Acute Plan: Start Protonix 40 mg IV twice daily and consult general surgery, Dr. Gautam for EGD. Will make the patient n.p.o. this morning. (3) Upper GI bleed: Status: Acute Plan: Continue Protonix 40 mg IV twice daily. The patient had an EGD that showed multiple gastric ulcers, which were not bleeding at the time of the EGD. However, she continues to have melanotic stools. (4) Hypomagnesemia: Status: Acute Plan: Replace magnesium oxide.
[2023-08-28] MEDS: ZITHROMAX INJ 500 MG VIAL 500 MG in NS 250 ML IV 250 ML IV SCH (22:40)
[2023-08-29] MEDS: NS 1,000 ML IV 1,000 ML IV SCH ×4 (01:20→16:34)
[2023-08-29] MEDS: ROCEPHIN VIAL 2 GRAMS 2 G in NS 100 ML IV 100 ML IV SCH (01:20)
[2023-08-29] MEDS ORDERED: MAG-OX TAB ONE (05:49)
[2023-08-29] MEDS: MAG-OX TAB PO SCH (06:03)
[2023-08-29] MEDS: CARAFATE PO SCH ×4 (06:03→20:45)
[2023-08-29] MEDS: ROBITUSSIN DM PO PRN ×2 (06:20→12:58)
[2023-08-29 06:56] LABS: BASOPHILS % (AUTO) 0.5 % (0.2-1.0); EOSINOPHILS # (AUTO) 0.1 x10^3/uL (0.0-0.2); EOSINOPHILS % (AUTO) 0.7 % (0.9-2.9); LYMPHOCYTES # (AUTO) 2.3 X10^3/uL (1.3-2.9); LYMPHOCYTES % (AUTO) 28.5 % (21.0-51.0); MEAN CORPUSCULAR HEMOGLOBIN 34.4 pg (27.0-34.0); MEAN CORPUSCULAR HGB CONC 33.7 g/dL (33.0-35.0); MEAN CORPUSCULAR VOLUME 102.2 fL (80.0-100.0); MEAN PLATELET VOLUME 8.6 fL (7.4-11.0); MONOCYTES # (AUTO) 0.7 x10^3/uL (0.3-0.8); MONOCYTES % (AUTO) 8.9 % (0.0-13.0); NEUTROPHILS % (AUTO) 61.4 % (42.0-75.0); PLATELET COUNT 180 X10^3/uL (150.0-450.0); RED BLOOD COUNT 1.83 X10^6/uL (3.5-5.4); RED CELL DISTRIBUTION WIDTH 14.5 % (11.6-16.5); WHITE BLOOD COUNT 8.2 X10^3/uL (3.6-10.0)
[2023-08-29 06:58] LABS: HEMATOCRIT 18.7 % (36.0-47.0); HEMOGLOBIN 6.3 g/dL (12.0-16.0)
[2023-08-29 07:05] LABS: ALANINE AMINOTRANSFERASE 15 Units/L (12-78); ALBUMIN 2.4 g/dL (3.4-5.0); ALKALINE PHOSPHATASE 56 Units/L (46-116); ASPARTATE AMINO TRANSFERASE 18 Units/L (15-37); BLOOD UREA NITROGEN 20 mg/dL (7-18); CALCIUM 7.6 mg/dL (8.5-10.1); CARBON DIOXIDE 23.4 mmol/L (21-32); CHLORIDE 109 mmol/L (98-107); COR CA(FOR HYPOALB) 8.9 mg/dL (8.5-10.1); CREATININE 0.94 mg/dL (0.55-1.02); GLUCOSE 90 mg/dL (65-99); MAGNESIUM 1.9 mg/dL (2.0-2.9); POTASSIUM 3.9 mmol/L (3.5-5.1); SODIUM 141 mmol/L (136-145); TOTAL PROTEIN 5.1 g/dL (6.4-8.2); eGFR NON BLACK RACES > 60 (>60)
[2023-08-29] MEDS ORDERED: CONSULT PHARMACY - POTASSIUM & MAGNESIUM XX SCH (08:00)
[2023-08-29] MEDS: PROVENTIL NEB TX 0.083% 2.5MG/ 3ML NEB SCH ×4 (09:03→21:00)
[2023-08-29] MEDS: AFRIN NASAL SPRAY ENOSTRIL SCH ×2 (10:01→20:44)
[2023-08-29] MEDS: DECADRON TAB PO SCH (10:05)
[2023-08-29] MEDS: ZOLOFT PO SCH ×2 (10:05→20:36)
[2023-08-29] MEDS: HYZAAR 50/12.5 MG PO SCH (10:05)
[2023-08-29] MEDS: PROTONIX INJ 40 MG VIAL IVP SCH ×2 (10:05→20:35)
--- NOTE | 2023-08-29 13:45 | PCM.PROG ---
Progress Note Progress Note for Day of Date of Exam: 08/29/23 Subjective Subjective: The patient is feeling okay today. She did not receive her blood yesterday as she had antibodies in the blood. Her hemoglobin has dropped down to 6.3 g today. Her vital signs have remained stable, and she reports that her dyspnea has resolved from her pneumonia. Her chest x-ray two days ago showed that her pneumonia had also cleared, and she is better in that regard. She has not had any further melanotic stool since yesterday morning. This sounds like the bleeding that she had from her ulcers has subsided. We will continue her on IV Protonix 40 mg twice daily at this time, and since we get the blood, we will transfuse two units of packed red blood cells. We will premedicate her with Tylenol and Benadryl prior to the transfusion of the blood. Once the patient's hemoglobin is stable, she may be discharged home. Past Medical Family Social History Allergies: Allergies No Known Drug Allergies Allergy (Verified 08/25/23 20:13) Review of Systems ROS: No change since H&P Vital Signs and I&O's Vital Signs: Vital Signs Temperature 98.2 F Temperature 98.2 F Pulse Rate [Radial] 86 Pulse Rate [Radial] 94 Pulse Rate 93 Respiratory Rate 18 Respiratory Rate 20 Blood Pressure [Right Arm] 159/87 Blood Pressure [Right Arm] 162/77 O2 Sat by Pulse Oximetry 100 O2 Sat by Pulse Oximetry 98 O2 Sat by Pulse Oximetry 99 Intake and Output: Intake & Output 08/27/23 08/28/23 08/29/23 08/30/23 11:59 11:59 11:59 11:59 Intake Total 3495 / 3495 4206 / 4206 4307 / 4307 Balance 3495 / 3495 4206 / 4206 4307 / 4307 Physical Exam Oriented: Normal, Time, Person and Place Eyes: Normal Ear: Normal Nose: Normal Throat: Normal Respiratory: Normal Cardiovascular: Normal Auscultation: Bowel Sounds: Normal Tenderness: Epigastric Skin: Normal Musculoskeletal: Normal Psychiatric: Normal Mood Description: Calm Affect: Normal Speech Pattern: Clear and Appropriate Laboratory and Diagnostics 08/29/23 05:26 08/29/23 05:26 Labs: 08/25/23 23:43 Blood Blood Culture - Preliminary 08/25/23 23:39 Blood Blood Culture - Preliminary Laboratory WBC 8.2 X10^3/uL (3.6-10.0) 08/29/23 05:26 RBC 1.83 X10^6/uL (3.5-5.4) L 08/29/23 05:26 Hgb 6.3 g/dL (12.0-16.0) L* 08/29/23 05:26 Hct 18.7 % (36.0-47.0) L* 08/29/23 05:26 MCV 102.2 fL (80.0-100.0) H 08/29/23 05:26 MCH 34.4 pg (27.0-34.0) H 08/29/23 05:26 MCHC 33.7 g/dL (33.0-35.0) 08/29/23 05:26 RDW 14.5 % (11.6-16.5) 08/29/23 05:26 Plt Count 180 X10^3/uL (150.0-450.0) 08/29/23 05:26 MPV 8.6 fL (7.4-11.0) 08/29/23 05:26 Neut % (Auto) 61.4 % (42.0-75.0) 08/29/23 05:26 Lymph % (Auto) 28.5 % (21.0-51.0) 08/29/23 05:26 [place] % (Auto) 8.9 % (0.0-13.0) 08/29/23 05:26 Eos % (Auto) 0.7 % (0.9-2.9) L 08/29/23 05:26 Baso % (Auto) 0.5 % (0.2-1.0) 08/29/23 05:26 Neut # (Auto) 5.0 x10^3/uL (2.2-4.8) H 08/29/23 05:26 Lymph # (Auto) 2.3 X10^3/uL (1.3-2.9) 08/29/23 05:26 [place] # (Auto) 0.7 x10^3/uL (0.3-0.8) 08/29/23 05:26 Eos # (Auto) 0.1 x10^3/uL (0.0-0.2) 08/29/23 05:26 Baso # (Auto) 0.0 X10^3/uL (0.0-0.1) 08/29/23 05:26 Absolute Nucleated RBC 0.1 /100WBC 08/29/23 05:26 Sample Site Rr 08/25/23 22:22 ABG pH 7.510 (7.35-7.45) H 08/25/23 22:22 ABG pCO2 36.0 mmHg (35.0-45.0) 08/25/23 22:22 ABG pO2 59.0 mmHg (80.0-100.0) L 08/25/23 22:22 ABG HCO3 28.7 mmol/L (22-26) H 08/25/23 22:22 ABG O2 Saturation 93.0 % (90-100) 08/25/23 22:22 ABG Base Excess 5.5 mmol/L (-2.0-2.0) H 08/25/23 22:22 Christo Test Pos 08/25/23 22:22 A-a Gradient 46.0 mmHg 08/25/23 22:22 FiO2 21.0 08/25/23 22:22 Blood Gas Comments Kemi well ae 08/25/23 22:22 Sodium 141 mmol/L (136-145) 08/29/23 05:26 Corrected Sodium TNP 08/29/23 05:26 Potassium 3.9 mmol/L (3.5-5.1) 08/29/23 05:26 Chloride 109 mmol/L (98-107) H 08/29/23 05:26 Carbon Dioxide 23.4 mmol/L (21-32) 08/29/23 05:26 BUN 20 mg/dL (7-18) H 08/29/23 05:26 Creatinine 0.94 mg/dL (0.55-1.02) 08/29/23 05:26 Est GFR (MDRD) Af Amer > 60 (>60) 08/29/23 05:26 Est GFR (MDRD) Non-Af > 60 (>60) 08/29/23 05:26 Glucose 90 mg/dL (65-99) 08/29/23 05:26 Calcium 7.6 mg/dL (8.5-10.1) L 08/29/23 05:26 Corrected Calcium 8.9 mg/dL (8.5-10.1) 08/29/23 05:26 Magnesium 1.9 mg/dL (2.0-2.9) L 08/29/23 05:26 Total Bilirubin 0.20 mg/dL (0.2-1.0) 08/29/23 05:26 AST 18 Units/L (15-37) 08/29/23 05:26 ALT 15 Units/L (12-78) 08/29/23 05:26 Alkaline Phosphatase 56 Units/L (46-116) 08/29/23 05:26 Total Protein 5.1 g/dL (6.4-8.2) L 08/29/23 05:26 Albumin 2.4 g/dL (3.4-5.0) L 08/29/23 05:26 Globulin 2.7 g/dL (2.5-4.5) 08/29/23 05:26 Albumin/Globulin Ratio 0.9 Ratio (1.1-2.1) L 08/29/23 05:26 Stl Occult Blood (IFOB) Positive (NEGATIVE) A 08/26/23 11:00 SARS-CoV-2 (PCR) Negative (NEGATIVE) 08/26/23 09:10 Influenza Type A (PCR) Negative (NEGATIVE) 08/26/23 09:10 Influenza Type B (PCR) Negative (NEGATIVE) 08/26/23 09:10 RSV (PCR) Negative (NEGATIVE) 08/26/23 09:10 Resp Viral Panel (PCR) See scanned report 08/26/23 01:41 Tissue Pathology See comment. 08/26/23 09:45 Blood Type O POSITIVE 08/28/23 08:08 Antibody Screen Positive 08/28/23 08:08 Crossmatch See Detail 08/28/23 08:08 Radiology Reviewed: Yes Plan (1) Anemia due to blood loss, acute: Status: Acute Plan: The patient will be receiving 2 units packed red blood cells soon as they find the appropriate blood. The patient did have antibodies in the blood as she had a prior blood transfusion earlier this year. (2) Pneumonia: Status: Acute Qualifiers: Laterality: left Lung location: unspecified part of lung Pneumonia type: due to unspecified organism Qualified Code(s): J18.9 - Pneumonia, unspecified organism Plan: Follow-up sputum culture. Continue IV Levaquin, jet nebs and repeat chest x-ray this morning. (3) Melena: Status: Acute Narrative Support Text: The patient has had no further melena since yesterday morning. Plan: Continue IV Protonix 40 mg IV twice daily. (4) Upper GI bleed: Status: Acute Narrative Support Text: Patient had multiple gastric ulcers that were found when Dr. Herrera did her EGD. Plan: Continue Protonix 40 mg IV twice daily. The patient had an EGD that showed multiple gastric ulcers, which were not bleeding at the time of the EGD. However, she continues to have melanotic stools. (5) Hypomagnesemia: Status: Acute Plan: Replace with magnesium oxide 400 mg twice daily.
[2023-08-29] MEDS: CRESTOR TAB 10 MG PO SCH (20:35)
[2023-08-30] MEDS: ZITHROMAX INJ 500 MG VIAL 500 MG in NS 250 ML IV 250 ML IV SCH ×2 (00:12→23:01)
[2023-08-30] MEDS: NS 1,000 ML IV 1,000 ML IV SCH ×5 (00:18→18:01)
[2023-08-30] MEDS: ROBITUSSIN DM PO PRN ×3 (01:14→20:29)
[2023-08-30] MEDS: ROCEPHIN VIAL 2 GRAMS 2 G in NS 100 ML IV 100 ML IV SCH (03:10)
[2023-08-30] MEDS: CARAFATE PO SCH ×4 (05:37→20:41)
[2023-08-30 06:15] LABS: EOSINOPHILS # (AUTO) 0.1 x10^3/uL (0.0-0.2); LYMPHOCYTES # (AUTO) 2.3 X10^3/uL (1.3-2.9); MONOCYTES # (AUTO) 0.6 x10^3/uL (0.3-0.8)
[2023-08-30 06:22] LABS: BASOPHILS % (AUTO) 0.4 % (0.2-1.0); LYMPHOCYTES % (AUTO) 27.8 % (21.0-51.0); MEAN CORPUSCULAR HEMOGLOBIN 36.6 pg (27.0-34.0); MEAN CORPUSCULAR HGB CONC 34.6 g/dL (33.0-35.0); MEAN CORPUSCULAR VOLUME 105.7 fL (80.0-100.0); MEAN PLATELET VOLUME 8.4 fL (7.4-11.0); MONOCYTES % (AUTO) 7.4 % (0.0-13.0); NEUTROPHILS # (AUTO) 5.2 x10^3/uL (2.2-4.8); NEUTROPHILS % (AUTO) 63.4 % (42.0-75.0); PLATELET COUNT 182 X10^3/uL (150.0-450.0); RED BLOOD COUNT 1.65 X10^6/uL (3.5-5.4); RED CELL DISTRIBUTION WIDTH 14.7 % (11.6-16.5); WHITE BLOOD COUNT 8.2 X10^3/uL (3.6-10.0)
[2023-08-30 06:25] LABS: ALANINE AMINOTRANSFERASE 22 Units/L (12-78); ALBUMIN 2.5 g/dL (3.4-5.0); ALKALINE PHOSPHATASE 58 Units/L (46-116); ASPARTATE AMINO TRANSFERASE 18 Units/L (15-37); BLOOD UREA NITROGEN 13 mg/dL (7-18); CALCIUM 7.8 mg/dL (8.5-10.1); CARBON DIOXIDE 26.4 mmol/L (21-32); CHLORIDE 108 mmol/L (98-107); CREATININE 0.89 mg/dL (0.55-1.02); GLUCOSE 97 mg/dL (65-99); MAGNESIUM 1.9 mg/dL (2.0-2.9); POTASSIUM 3.5 mmol/L (3.5-5.1); SODIUM 142 mmol/L (136-145); TOTAL PROTEIN 5.1 g/dL (6.4-8.2); eGFR NON BLACK RACES > 60 (>60)
[2023-08-30 06:53] LABS: HEMATOCRIT 17.4 % (36.0-47.0)
[2023-08-30] MEDS ORDERED: CONSULT PHARMACY - POTASSIUM & MAGNESIUM XX SCH ×2 (07:00→20:00)
[2023-08-30 07:03] LABS: PLATELET MORPHOLOGY COMMENT NORMAL (NORMAL)
[2023-08-30] MEDS: PROVENTIL NEB TX 0.083% 2.5MG/ 3ML NEB SCH ×4 (08:21→21:45)
[2023-08-30] MEDS ORDERED: K-DUR TAB 20 MEQ PO SCH (10:00)
[2023-08-30] MEDS: MAG-OX TAB PO SCH ×4 (10:06→16:54)
[2023-08-30] MEDS: AFRIN NASAL SPRAY ENOSTRIL SCH ×2 (10:07→20:40)
[2023-08-30] MEDS: DECADRON TAB PO SCH (10:08)
[2023-08-30] MEDS: HYZAAR 50/12.5 MG PO SCH (10:08)
[2023-08-30] MEDS: ZOLOFT PO SCH ×2 (10:08→20:29)
[2023-08-30] MEDS: PROTONIX INJ 40 MG VIAL IVP SCH ×2 (10:08→20:29)
[2023-08-30 11:17] LABS: ABG BASE EXCESS 4.3 mmol/L (-2.0-2.0); ABG HCO3 26.9 mmol/L (22-26)
[2023-08-30 11:18] LABS: ABG ALLEN TEST POS
[2023-08-30 11:41] LABS: RETICULOCYTE % 3.03 % (0.8-2.2)
[2023-08-30 12:14] LABS: IRON 47 ug/dL (50-175)
[2023-08-30] MEDS ORDERED: NS 250 ML IV 250 ML IV ONE ×2 (13:59→20:47)
--- NOTE | 2023-08-30 15:17 | RAD ---
EXAM:CHEST, 1 VIEWHISTORY:pneumonia, covid +, sob;COMPARISON:August 27, 2023 2 views of the chestTECHNIQUE:Frontal one view of the chestFINDINGS:The heart is enlarged. Interstitial prominence. No pneumothorax. No lobar consolidation.IMPRESSION:Stable chest radiograph. Little interval change.THIS IS AN ELECTRONICALLY VERIFIED FINAL [id number]/30/2023 3:14 PM - Electronically signed by Nick King MD
[2023-08-30] MEDS: CRESTOR TAB 10 MG PO SCH (20:29)
[2023-08-31 00:55] LABS: HEMOGLOBIN 8.7 g/dL (12.0-16.0)
[2023-08-31] MEDS: ROCEPHIN VIAL 2 GRAMS 2 G in NS 100 ML IV 100 ML IV SCH ×3 (01:00→05:26)
[2023-08-31] MEDS: NS 1,000 ML IV 1,000 ML IV SCH (02:55)
[2023-08-31 05:53] LABS: BASOPHILS % (AUTO) 0.4 % (0.2-1.0); EOSINOPHILS # (AUTO) 0.1 x10^3/uL (0.0-0.2); HEMATOCRIT 25.3 % (36.0-47.0); HEMOGLOBIN 8.9 g/dL (12.0-16.0); LYMPHOCYTES # (AUTO) 1.8 X10^3/uL (1.3-2.9); LYMPHOCYTES % (AUTO) 18.4 % (21.0-51.0); MEAN CORPUSCULAR HGB CONC 35.1 g/dL (33.0-35.0); MEAN PLATELET VOLUME 8.3 fL (7.4-11.0); MONOCYTES # (AUTO) 0.8 x10^3/uL (0.3-0.8); MONOCYTES % (AUTO) 7.9 % (0.0-13.0); NEUTROPHILS # (AUTO) 6.9 x10^3/uL (2.2-4.8); NEUTROPHILS % (AUTO) 72.3 % (42.0-75.0); PLATELET COUNT 205 X10^3/uL (150.0-450.0); RED BLOOD COUNT 2.28 X10^6/uL (3.5-5.4); RED CELL DISTRIBUTION WIDTH 15.7 % (11.6-16.5); WHITE BLOOD COUNT 9.6 X10^3/uL (3.6-10.0)
[2023-08-31 06:10] LABS: ALANINE AMINOTRANSFERASE 25 Units/L (12-78); ALBUMIN 2.7 g/dL (3.4-5.0); ALKALINE PHOSPHATASE 65 Units/L (46-116); ASPARTATE AMINO TRANSFERASE 19 Units/L (15-37); BLOOD UREA NITROGEN 11 mg/dL (7-18); CALCIUM 8.2 mg/dL (8.5-10.1); CHLORIDE 105 mmol/L (98-107); COR CA(FOR HYPOALB) 9.2 mg/dL (8.5-10.1); CREATININE 1.04 mg/dL (0.55-1.02); GLUCOSE 95 mg/dL (65-99); MAGNESIUM 2.1 mg/dL (2.0-2.9); POTASSIUM 3.7 mmol/L (3.5-5.1); SODIUM 141 mmol/L (136-145); TOTAL PROTEIN 5.6 g/dL (6.4-8.2); eGFR NON BLACK RACES 55 (>60)
[2023-08-31 06:50] LABS: PLATELET MORPHOLOGY COMMENT NORMAL (NORMAL)
[2023-08-31] MEDS ORDERED: CONSULT PHARMACY - POTASSIUM & MAGNESIUM XX SCH (07:00)
[2023-08-31] MEDS: MAG-OX TAB PO SCH (08:28)
[2023-08-31] MEDS: ZOLOFT PO SCH (08:28)
[2023-08-31] MEDS: AFRIN NASAL SPRAY ENOSTRIL SCH (08:28)
[2023-08-31] MEDS: HYZAAR 50/12.5 MG PO SCH (08:28)
[2023-08-31] MEDS: PROTONIX INJ 40 MG VIAL IVP SCH ×2 (08:28→08:38)
[2023-08-31 08:29] VITALS: RESP 20; O2SAT 97
[2023-08-31] MEDS: DECADRON TAB PO SCH (08:29)
[2023-08-31] MEDS ORDERED: K-DUR TAB 20 MEQ PO SCH (09:00)
[2023-08-31] MEDS: PROVENTIL NEB TX 0.083% 2.5MG/ 3ML NEB SCH (10:37)
[2023-08-31] MEDS: CARAFATE PO SCH (12:40)
[2023-08-31 12:41] VITALS: PULSE 93; TEMP 98.1
[2023-08-31 12:51] VITALS: BP 168/94
== END 2023-08-31 13:38 | disposition home or self-care (01) | DRG 177 ==
LOC: ER 19:02 → MED/SURG 19:02
PROVIDERS: ADMIT Family Medicine; ATTEND Family Medicine